=== PATIENT | female | born 1995 | race Hispanic/Latino ===

== ENCOUNTER 2018-10-27 17:59 | Emergency (ER) | payer BC ==
[2018-10-27 18:06] VITALS: RESP 18; TEMP 98
--- NOTE | 2018-10-27 19:04 | ED PDOC ---
HPI: Chest Pain Time Seen by Provider: 10/27/18 18:24 Chief Complaint (Nursing): Shortness Of Breath History Per: Patient Additional Complaint(s): Pt. states at noon today she developed atraumatic, non-radiating mid-sternal chest pain associated with mild SOB. Pt. states shortly after she felt anxious. Denies hemoptysis, fever, palpitations, leg pain, hx of DVT or PE, trauma, cough, recent prolonged limb immobilization, SI/HI, hallucinations. Past Medical History Reviewed: Historical Data, Nursing Documentation, Vital Signs Vital Signs: Last Vital Signs Temp 98 F 10/27/18 18:04 Pulse 81 10/27/18 18:04 Resp 18 10/27/18 18:04 BP 114/78 10/27/18 18:04 Pulse Ox 97 10/27/18 18:26 - Surgical History Surgical History: No Surg Hx - Family History Family History: Denies: Stroke, MS, CAD - Allergies Allergies/Adverse Reactions: Allergies Allergy/AdvReac Type Severity Reaction Status Date / Time amoxicillin Allergy RASH Verified 10/27/18 18:04 cefaclor [From Ceclor] Allergy RASH Verified 10/27/18 18:04 JUANA Risk Score for UA/NSTEMI - JUANA Risk Score Age > 64: NO 3 or more CAD Risk Factors: NO Known CAD (Stenosis greater than 50%): NO Aspirin use in past 7 days: NO Severe Angina: NO EKG ST changes greater than 0.5mm: NO Positive Cardiac Marker: NO JUANA Score: 0 Risk %: 5% Wells Criteria for PE - Wells Criteria for Pulmonary Embolism Clinical Signs and Symptoms of DVT: No P.E is #1 Diagnosis, or Equally Likely: No Heart Rate >100: No Immobilization at least 3 days;Surgery previous 4 weeks: No Previous, objectively diagnosed PE or DVT: No Hemoptysis: No Malignancy w/treatment within 6 months, or palliative: No Total Score: 0 Review of Systems ROS Statement: Except As Marked, All Systems Reviewed And Found Negative Cardiovascular: Positive for: Chest Pain Respiratory: Positive for: Shortness of Breath Physical Exam - Physical Exam Appears: Positive for: Well, Non-toxic, No Acute Distress Skin: Positive for: Normal Color, Warm. Negative for: Rash Eye Exam: Positive for: Normal appearance ENT: Negative for: Pharyngeal Erythema, Tonsillar Exudate, Tonsillar Swelling Cardiovascular/Chest: Positive for: Regular Rate, Rhythm. Negative for: Tachycardia Respiratory: Positive for: Normal Breath Sounds. Negative for: Wheezing, Respiratory Distress Gastrointestinal/Abdominal: Positive for: Soft. Negative for: Tenderness Back: Positive for: Normal Inspection Neurological/Psych: Positive for: Awake, Alert, Oriented (x3) - Laboratory Results Result Diagrams: 10/27/18 19:30 Urine POC: Negative - ECG ECG: Positive for: Interpreted By Me ECG Rhythm: Positive for: Sinus Rhythm. Negative for: ST/T Changes O2 Sat by Pulse Oximetry: 97 - Progress ED Course And Treament: Labs, EKG, CXR ordered. Disposition - Clinical Impression Clinical Impression: Chest pain - Patient ED Disposition Is Patient to be Admitted: Transfer of Care (Signed out to Dar LUNA pending labs and re-evaluation.) - Disposition Disposition Time: 19:58 Condition: STABLE Forms: Intra-Cellular Therapies (Syriac)
[2018-10-27 19:43] LABS: BARBITURATES, UR NEGATIVE (NEGATIVE); BENZODIAZEPINES, UR NEGATIVE (NEGATIVE); OPIATES, UR NEGATIVE (NEGATIVE); PHENCYCLIDINE, UR NEGATIVE (NEGATIVE)
[2018-10-27 19:49] LABS: BASO % 0.6 % (0.0-2.0); EOS % 0.5 % (0.0-4.0); HEMOGLOBIN 13.5 g/dL (12.0-16.0); LYMPH # 2.7 K/uL (1.0-4.3); LYMPH % 35.6 % (20.0-40.0); MEAN CELL VOLUME 85.1 fl (81.0-99.0); MEAN CORPUSCULAR HEMOGLOBIN 28.5 pg (27.0-31.0); MEAN CORPUSCULAR HGB CONC 33.5 g/dL (33.0-37.0); MEAN PLATELET VOLUME 8.3 fl (7.2-11.7); MONO # 0.6 K/uL (0.0-0.8); MONO % 8.2 % (0.0-10.0); NEUT # 4.2 K/uL (1.8-7.0); NEUT % 55.1 % (50.0-75.0); NRBC % 0.1 % (0.0-0.0); RBC 4.75 Mil/uL (3.80-5.20); RED CELL DISTRIBUTION WIDTH 14.1 % (11.5-14.5); WHITE BLOOD COUNT 7.7 K/uL (4.8-10.8)
[2018-10-27 20:01] LABS: ALB/GLOB RATIO 1.5 (1.0-2.1); ALBUMIN 4.8 g/dL (3.5-5.0); ALT/SGPT 60 U/L (9-52); AST/SGOT 47 U/L (14-36); BLOOD UREA NITROGEN 13 mg/dl (7-17); CALCIUM 9.6 mg/dL (8.4-10.2); GFR NON-AFRICAN AMERICAN > 60
--- NOTE | 2018-10-27 20:47 | ED PDOC ---
- Laboratory Results Result Diagrams: 10/27/18 19:30 10/27/18 19:30 Lab Results: D-Dimer, Quantitative < 200 ng/mlDDU (0-230) 10/27/18 19:30 Troponin I < 0.0120 ng/mL (0.00-0.120) 10/27/18 19:30 Total Bilirubin 0.3 mg/dl (0.2-1.3) 10/27/18 19:30 AST 47 U/L (14-36) H 10/27/18 19:30 ALT 60 U/L (9-52) H 10/27/18 19:30 Alkaline Phosphatase 73 U/L (38-126) 10/27/18 19:30 Total Protein 8.0 G/DL (6.3-8.2) 10/27/18 19:30 Albumin 4.8 g/dL (3.5-5.0) 10/27/18 19:30 Globulin 3.2 gm/dL (2.2-3.9) 10/27/18 19:30 Albumin/Globulin Ratio 1.5 (1.0-2.1) 10/27/18 19:30 Urine POC: Negative - ECG O2 Sat by Pulse Oximetry: 97 - Radiology X-Ray: Viewed By Wa X-Ray Interpretation: No Acute Disease - Progress ED Course And Treament: Case endorsed to television script writer from Brandon LUNA pending labs, xray On re-eval, patient resting comfortably; states she is feeling better Patient educated on findings, discharged with instructions to follow up with PMD within 2-3 days Return precautions given Disposition - Clinical Impression Clinical Impression: Chest pain - POA Present On Arrival: None - Disposition Disposition: Routine/Home Disposition Time: 21:07 Condition: IMPROVED Instructions: Chest Pain Forms: [employer] (Romansh)
[2018-10-27 21:22] VITALS: BP 121/72; PULSE 65; O2SAT 100
--- NOTE | 2018-10-28 11:08 | CARD ---
APPROVED REPORT Date of service: 10/27/2018 EKG Measurement Heart [id number] <Conclusion> Normal sinus rhythm Normal ECG
--- NOTE | 2018-10-28 12:53 | RAD ---
Date of service: 10/27/2018 HISTORY: chest pain, SOB COMPARISON: None TECHNIQUE: Chest PA and lateral views FINDINGS: LUNGS: No active pulmonary disease. PLEURA: No significant pleural effusion identified. No pneumothorax apparent. CARDIOVASCULAR: No aortic atherosclerotic calcification present. Normal cardiac size. No pulmonary vascular congestion. OSSEOUS STRUCTURES: No significant abnormalities. VISUALIZED UPPER ABDOMEN: Normal. OTHER FINDINGS: None. IMPRESSION: No active disease.
== END 2018-10-27 21:21 | disposition home or self-care (01) ==
LOC: H.ER 17:59
DX: R07.9 Chest pain, unspecified (principal); Z88.1 Allergy status to other antibiotic agents
CPT/HCPCS: 71046; 80053; 81025; 84484; 85025; 85378; 93005; 99284; G0480